=== PATIENT | female | born 1950 | race Caucasian/White ===

== ENCOUNTER → 2017-10-24 16:13 | Outpatient (CLI) | payer OTHER, SELFPAY ==
--- NOTE | 2017-10-24 16:19 | MM_ITS ---
MM Dig screening mamm BI w/CAD CAD Screening ORDERING PHYSICIAN : Garret Zhang MD PATIENT AGE: 67 years GENDER: Female COMPARISON: Previous mammograms: September 2016. August 2015. July 2014. April 2013. & February 2012 INDICATION: 67-year-old. No hormones. No new complaints. Family history. paternal grandmother TECHNIQUE: Standard CC and MLO images were obtained. R2 CAD reviewed. FINDINGS: Moderately dense breast tissue at the central and upper outer quadrant both both breast slight inhomogeneous and mild asymmetry again noted with no significant new findings.. RIGHT BREAST:No new findings. The stable mild asymmetry is similar to multiple previous studies including those dating back to 2011 LEFT BREAST:Small area of nodularity inferior left breast stable. Architectural pattern is stable. Stable region of what appears to be stable glandular tissue central lateral breast on cc view is unchanged since studies dating back to 2011. IMPRESSION: Stable mammogram. Follow-up in one year recommended. Moderately dense breast, which do slightly decreases sensitivity mammography but we see no significant new areas of concern. BI-RADS Category: 2 Benign Finding(s) RECOMMENDED FOLLOW-UP: 1YR - 1 YEAR FOLLOW-UP (A letter has been sent to the patient regarding results of the study.)
== END ==
PROVIDERS: PCP Family Medicine; Visit Provider Family Medicine
DX: Z12.31 Encounter for screening mammogram for malignant neoplasm of breast (principal)
CPT/HCPCS: 77067

== ENCOUNTER → 2018-01-02 12:24 | Outpatient (CLI) | payer OTHER, SELFPAY ==
--- NOTE | 2018-01-02 12:27 | XR_ITS ---
XR hand LT min 3V HISTORY: ITS.REASON: left 1st digit pain ORDERING PHYSICIAN: Peter Rothman MD PATIENT AGE: 67 years COMPARISON: None FINDINGS: No fracture or dislocation. No lytic or blastic change. There is normal mineralization.. The joint spaces are well-preserved. No significant degenerative/arthritic changes. No erosive changes evident.. IMPRESSION: Negative, no acute finding
== END ==
PROVIDERS: PCP Family Medicine; Visit Provider Orthopaedic Surgery
DX: M79.642 Pain in left hand (principal)
CPT/HCPCS: 73130

== ENCOUNTER → 2019-02-03 13:01 | Outpatient (CLI) | payer OTHER, SELFPAY ==
--- NOTE | 2019-02-03 13:09 | XR_ITS ---
XR finger LT min 2V CLINICAL INDICATION: ITS.REASON: left thumb pain ORDERING PHYSICIAN: Peter Rothman MD PATIENT AGE: 68 years Comparison: None FINDINGS: There are minimal osteoarthritic changes of the first metacarpal carpal joint. The remaining abdominal has an unremarkable appearance. 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
== END ==
PROVIDERS: PCP Family Medicine; Visit Provider Orthopaedic Surgery
DX: M79.645 Pain in left finger(s) (principal)
CPT/HCPCS: 73140

== ENCOUNTER → 2019-02-27 16:36 | Outpatient (CLI) | payer OTHER, SELFPAY ==
--- NOTE | 2019-02-27 | MM_ITS ---
MM Dig screening mamm BI w/CAD CAD Screening COMPARISON: Digital mammograms with CAD 10/24/2017 and 10/16/2016 INDICATION: There is a history of breast cancer in patient's paternal grandmother TECHNIQUE: Standard CC and MLO images were obtained. R2 CAD reviewed. FINDINGS: Moderate heterogenic fibroglandular densities are seen in central portions of both breasts. There are few benign-appearing microcalcifications left breast and is a mole marker left breast. There is no suspicious lesion and there are no suspicious microcalcifications. IMPRESSION: Moderate breast density with no suspicious lesion seen BI-RADS Category: 2 Benign Finding(s) RECOMMENDED FOLLOW-UP: 1YR - 1 YEAR FOLLOW-UP (A letter has been sent to the patient regarding results of the study.)
== END ==
PROVIDERS: PCP Family Medicine; Visit Provider Family Medicine
DX: Z12.31 Encounter for screening mammogram for malignant neoplasm of breast (principal)
CPT/HCPCS: 77067

== ENCOUNTER → 2019-09-28 14:11 | Outpatient (CLI) | payer OTHER, SELFPAY ==
--- NOTE | 2019-09-28 14:20 | XR_ITS ---
PROCEDURE: XR SHOULDER LT MIN 2V CLINICAL INDICATION: DECREASED ROM, SHOULDER PAIN COMPARISON: No exams were available for comparison FINDINGS: There is no acute fracture dislocation. On the AP external rotation view a 13 millimeter radiolucency with sclerotic margins is suggested in the proximal shaft of the humerus. This is not confirmed on the other images and favored to be artifactual. Dedicated humerus exam could further evaluate if felt to be clinically indicated. Mild acromioclavicular and glenohumeral joint arthropathy are noted. IMPRESSION: Mild AC and glenohumeral joint arthropathy with no acute findings. Questionable circumscribed lucent lesion proximal humerus. Dictated by: Domenic Zhao 09/28/2019 15:31 Electronically signed by Domenic Zhao in [facility] 09/28/2019 15:31
== END ==
PROVIDERS: PCP Nurse Practitioner Family; Visit Provider Nurse Practitioner Family
DX: M25.612 Stiffness of left shoulder, not elsewhere classified (principal); M25.512 Pain in left shoulder
CPT/HCPCS: 73030

== ENCOUNTER → 2020-06-01 15:28 | Outpatient (CLI) | payer OTHER, SELFPAY ==
--- NOTE | 2020-06-01 15:31 | MM_ITS ---
PROCEDURE: MM DIG SCREENING MAMM BI W/CAD Digital Breast Tomosynthesis Included CLINICAL INDICATION: SCREENING There is a history of breast cancer patient's paternal grandmother. COMPARISON: MG DMSB DIG MAMM-SCREEN [facility] from 10/16/2016 MG [facility] MM Dig screening mamm BI w/CAD from 10/24/2017 MG DIG MAMM-SCREEN [facility] from 02/27/2019 TECHNIQUE: Standard CC and MLO images and 3D Tomosynthesis was obtained. R2 CAD reviewed. FINDINGS: Moderate somewhat heterogenic fibroglandular densities are seen in the central portions of both breasts and the findings are fairly symmetrical bilaterally. There are couple of benign-appearing micro and macrocalcifications left breast and a few benign-appearing microcalcifications right breast. There is a mole marker left breast. There is no suspicious lesion in either breast and no suspicious microcalcifications. IMPRESSION: Moderate breast density with no suspicious lesions seen BI-RAD Category: 2 Benign Finding(s) FOLLOW-UP: 1YR 1 Year Follow-up (A letter has been sent to the patient regarding results of the study.) Dictated Dr. Luis Enrique Gomes MD 06/03/2020 09:18 Dr. Luis Enrique Kebede MD in [facility] 06/03/2020 09:18
== END ==
PROVIDERS: PCP Family Medicine; Visit Provider Family Medicine
DX: Z12.31 Encounter for screening mammogram for malignant neoplasm of breast (principal)
CPT/HCPCS: 77063; 77067

== ENCOUNTER → 2021-10-16 13:23 | Outpatient (CLI) | payer OTHER, SELFPAY ==
--- NOTE | 2021-10-16 13:25 | MM_ITS ---
PROCEDURE INFORMATION: Exam: MG Bilateral Screening 3D Mammography Exam date and time: 10/16/2021 1:25 PM Age: 71 years old Clinical indication: Screening mammogram TECHNIQUE: Imaging protocol: Bilateral screening tomosynthesis and 2D mammography including computer-aided detection (CAD) when performed. COMPARISON: 1. MG MM DIG SCREENING MAMM BI W/CAD 06/01/2020 3:36 PM 2. MG DIG MAMM-SCREEN [facility] 02/27/2019 4:46 PM 3. MG [facility]BI MM Dig screening mamm BI w/CAD 10/24/2017 4:41 PM 4. MG DMSB DIG MAMM-SCREEN [facility] 10/16/2016 4:07 PM FINDINGS: MAMMOGRAPHY: Breast composition: The breast tissue is heterogeneously dense, which may obscure small masses. Mass: None. Architectural distortion: No new or suspicious architectural distortion. Calcifications: Stable benign-appearing calcifications are present. No new or suspicious cluster of microcalcifications have developed. Asymmetric density: No new or suspicious asymmetric density is present Skin thickening: None. Axillary adenopathy: None. IMPRESSION: No mammographic evidence of malignancy. Recommend annual screening mammography unless otherwise clinically indicated. ASSESSMENT: BI-RADS category 2: Benign
== END ==
PROVIDERS: PCP Family Medicine; Visit Provider Family Medicine
DX: Z12.31 Encounter for screening mammogram for malignant neoplasm of breast (principal)
CPT/HCPCS: 77063; 77067

== ENCOUNTER → 2021-12-26 11:25 | Outpatient (CLI) | payer OTHER, SELFPAY ==
[2021-12-26 12:27] LABS: Basophils # 0.1 K/mm3 (0-0.2); Basophils % 1.3 % (0.1-2.0); Eosinophils # 0.2 K/mm3 (0.0-0.4); Hematocrit 45.8 % (37.0-47.0); Hemoglobin 15.1 g/dL (12.2-16.2); Lymphocytes # 1.7 K/mm3 (0.7-4.5); Lymphocytes % 19.9 % (10-50); Mean Corpuscular Hemoglobin 29.5 pg (27.0-31.2); Mean Corpuscular Volume 89.4 fl (81-99); Mean Platelet Volume 8.6 fl (7.4-10.4); Monocytes # 0.4 K/mm3 (0.1-1.0); Monocytes % 4.7 % (1.7-9.3); Neutrophils # 6.1 K/mm3 (1.8-7.8); Neutrophils % 72.1 % (37.0-80.0); Platelet Count 296 K/mm3 (142-424); Red Blood Count 5.12 M/mm3 (4.20-5.40); Red Cell Distribution Width 13.6 % (11.5-17.5); White Blood Count 8.5 K/mm3 (4.8-10.8)
[2021-12-26 12:52] LABS: Alanine Aminotransferase 42 U/L (12-78); Albumin Level 4.4 g/dl (3.5-5.0); Albumin/Globulin Ratio 1.9 (1.1-1.8); Alkaline Phosphatase 48 U/L (38-126); Anion Gap 14.1 mEq/L (5-15); Aspartate Amino Transferase 35 U/L (14-36); Bilirubin,Total 0.6 mg/dl (0.2-1.3); Blood Urea Nitrogen 18 mg/dl (7-17); Calcium 9.4 mg/dl (8.4-10.2); Carbon Dioxide 27 mmol/L (22.0-30.0); Chloride 104 mmol/L (98-107); Estimated Glomerular Filt Rate 83 ml/min (>60); GFR (African American) 100 ML/MIN (>60); Globulin 2.3 g/dL (1.3-3.2); Glucose 122 mg/dl (74-100); Potassium 4.1 mmoL/L (3.5-5.1); Sodium 141 mmol/L (136-145); Total Protein,Serum 6.7 g/dl (6.3-8.2)
[2021-12-26 13:06] LABS: Free T4 (Free Thyroxine) 1.08 ng/dl (0.78-2.19)
[2021-12-26 13:23] LABS: Thyroid Stimulating Hormone 4.81 uIU/mL (0.465-4.68)
[2021-12-26 14:15] LABS: Vitamin B12 > 1000 pg/mL (239-931)
[2021-12-26 14:38] LABS: 25-OH Vitamin D, Total 19.8 ng/mL (30-100)
== END ==
PROVIDERS: Visit Provider Nurse Practitioner Family
DX: R53.83 Other fatigue (principal); E55.9 Vitamin D deficiency, unspecified
CPT/HCPCS: 36415; 80053; 82306; 82607; 82746; 83036; 84439; 84443; 85025

== ENCOUNTER → 2021-12-29 16:05 | Outpatient (CLI) | payer OTHER, SELFPAY ==
[2021-12-29 17:29] LABS: Basophils # 0.1 K/mm3 (0-0.2); Basophils % 0.3 % (0.1-2.0); Eosinophils # 0.1 K/mm3 (0.0-0.4); Eosinophils % 0.5 % (0.1-12.0); Hematocrit 48.1 % (37.0-47.0); Hemoglobin 15.9 g/dL (12.2-16.2); Lymphocytes # 0.6 K/mm3 (0.7-4.5); Lymphocytes % 3.7 % (10-50); Mean Corpuscular HGB Conc 33.1 g/dL (31.8-35.4); Mean Corpuscular Hemoglobin 29.8 pg (27.0-31.2); Mean Platelet Volume 8.9 fl (7.4-10.4); Monocytes # 0.6 K/mm3 (0.1-1.0); Monocytes % 3.7 % (1.7-9.3); Neutrophils # 14.7 K/mm3 (1.8-7.8); Neutrophils % 91.8 % (37.0-80.0); Platelet Count 321 K/mm3 (142-424); Red Blood Count 5.34 M/mm3 (4.20-5.40); Red Cell Distribution Width 13.6 % (11.5-17.5)
[2021-12-29 17:36] LABS: MANUAL DIFFERENTIAL MANUAL DIFFERENTIAL (MANUAL DIFF)
[2021-12-29 17:42] LABS: Alanine Aminotransferase 59 U/L (12-78); Albumin Level 4.6 g/dl (3.5-5.0); Albumin/Globulin Ratio 1.8 (1.1-1.8); Alkaline Phosphatase 51 U/L (38-126); Amylase 38 U/L (30-110); Anion Gap 15.7 mEq/L (5-15); Aspartate Amino Transferase 54 U/L (14-36); Bilirubin,Total 0.8 mg/dl (0.2-1.3); Blood Urea Nitrogen 22 mg/dl (7-17); Calcium 9.3 mg/dl (8.4-10.2); Carbon Dioxide 26 mmol/L (22.0-30.0); Chloride 103 mmol/L (98-107); Estimated Glomerular Filt Rate 99 ml/min (>60); GFR (African American) 120 ML/MIN (>60); Globulin 2.6 g/dL (1.3-3.2); Glucose 131 mg/dl (74-100); Lipase 29 U/L (23-300); Potassium 3.7 mmoL/L (3.5-5.1); Sodium 141 mmol/L (136-145); Total Protein,Serum 7.2 g/dl (6.3-8.2)
[2021-12-29 18:47] LABS: Lymphocytes % 4 % (10-50); Neutrophils % 90 % (42-76); Platelet Estimate Normal; RBC Morphology Normal; Total Cells Counted 100
== END ==
PROVIDERS: Visit Provider Nurse Practitioner Family
DX: R11.2 Nausea with vomiting, unspecified (principal)
CPT/HCPCS: 36415; 80053; 82150; 83690; 85007; 85025

== ENCOUNTER → 2022-01-08 10:36 | Outpatient (CLI) | payer OTHER, SELFPAY ==
[2022-01-08 11:22] LABS: Basophils # 0.1 K/mm3 (0-0.2); Basophils % 1.2 % (0.1-2.0); Eosinophils # 0.3 K/mm3 (0.0-0.4); Eosinophils % 2.5 % (0.1-12.0); Hematocrit 46.9 % (37.0-47.0); Hemoglobin 15.4 g/dL (12.2-16.2); Lymphocytes # 1.8 K/mm3 (0.7-4.5); Lymphocytes % 16.4 % (10-50); Mean Corpuscular HGB Conc 32.8 g/dL (31.8-35.4); Mean Corpuscular Hemoglobin 29.9 pg (27.0-31.2); Mean Corpuscular Volume 91.1 fl (81-99); Mean Platelet Volume 8.9 fl (7.4-10.4); Monocytes # 0.6 K/mm3 (0.1-1.0); Monocytes % 5.9 % (1.7-9.3); Neutrophils # 8.1 K/mm3 (1.8-7.8); Platelet Count 333 K/mm3 (142-424); Red Blood Count 5.15 M/mm3 (4.20-5.40); Red Cell Distribution Width 13.6 % (11.5-17.5); White Blood Count 10.9 K/mm3 (4.8-10.8)
== END ==
PROVIDERS: PCP Nurse Practitioner Family; Visit Provider Nurse Practitioner Family
DX: D72.829 Elevated white blood cell count, unspecified (principal)
CPT/HCPCS: 36415; 85025

== ENCOUNTER → 2022-01-12 14:14 | Outpatient (CLI) | payer OTHER, SELFPAY ==
--- NOTE | 2022-01-12 14:19 | XR_ITS ---
FINAL REPORT CLINICAL HISTORY: LOW BACK PAIN FINDINGS: 4 views were obtained. There is no acute fracture. There is no malalignment. There is mild lumbar scoliosis convex to the left. There is mild disc space narrowing at L1-L2 and L4-L5. There is a large amount of retained stool. The gallbladder surgically absent. IMPRESSION: Mild disc space narrowing at L1-L2 and L4-L5. Reviewed, Interpreted and Dictated by Sahil Garcia MD Transcribed by Gelacio Skinner Authenticated by Sahil Garcia MD on 01/12/2022 03:12:10 PM [facility]
--- NOTE | 2022-01-12 14:19 | XR_ITS ---
FINAL REPORT CLINICAL HISTORY: LT HIP PAIN,LOW BACK PAIN FINDINGS: Left hip with pelvis. Three views were obtained. There is no acute fracture or dislocation. There is mild narrowing of the hip joint spaces bilaterally. There are no soft tissue abnormalities. IMPRESSION: Mild degenerative change bilaterally. Reviewed, Interpreted and Dictated by Sahil Garcia MD Transcribed by Gelacio Skinner Authenticated by Sahil Garcia MD on 01/12/2022 03:12:02 PM [facility]
== END ==
PROVIDERS: PCP Nurse Practitioner Family; Visit Provider Nurse Practitioner Family
DX: M25.552 Pain in left hip (principal); M54.42 Lumbago with sciatica, left side
CPT/HCPCS: 72110; 73502

== ENCOUNTER → 2022-03-06 12:46 | Outpatient (CLI) | payer OTHER, SELFPAY ==
[2022-03-06 13:15] VITALS: PULSE 78
--- NOTE | 2022-03-06 13:39 | XR_ITS ---
FINAL REPORT CLINICAL HISTORY: ACUTE COUGH FINDINGS: Two views of the chest were obtained. The heart size and pulmonary vascularity are within normal limits. The mediastinum is normal. No acute pulmonary abnormality is identified. There is no pneumothorax. The bony thorax is intact. IMPRESSION: No active cardiopulmonary disease. Reviewed, Interpreted and Dictated by Osmel Campa III, MD Transcribed by Cesia Renae Authenticated by Osmel Campa III, MD on 03/06/2022 03:19:35 PM [facility]
== END ==
PROVIDERS: PCP Nurse Practitioner Family; Visit Provider Nurse Practitioner Family
DX: R05.1 Acute cough (principal)
CPT/HCPCS: 71046; 94060

== ENCOUNTER 2022-04-29 20:32 | Emergency (ER) | payer OTHER, SELFPAY ==
[2022-04-29 20:33] VITALS: BP 179/70; PULSE 112; RESP 18; TEMP 36.7; O2SAT 95; BMI 37.0
--- NOTE | 2022-04-29 20:45 | XR_ITS ---
PROCEDURE INFORMATION: Exam: XR Cervical Spine Exam date and time: 04/29/2022 8:42 PM Age: 71 years old Clinical indication: Neck pain TECHNIQUE: Imaging protocol: Radiologic exam of the cervical spine. Views: 4 or 5 views. COMPARISON: CR XR CHEST 2V 03/06/2022 1:44 PM FINDINGS: Bones/joints: Degenerative changes of the uncovertebral and facet joints. Normal alignment. Soft tissues: Multiple dental fillings. IMPRESSION: No acute findings.
--- NOTE | 2022-04-29 21:28 | HMH.EDNECK ---
ED Disposition Clinical Impression: Acute cervical myofascial strain Qualifiers: Encounter type: initial encounter Qualified Code(s): S16.1XXA - Strain of muscle, fascia and tendon at neck level, initial encounter Disposition: Home, Self-Care Condition on Discharge: Good Instructions: DI for Neck Pain Additional Instructions: use meds and call pcp for follow up Prescriptions: predniSONE [Prednisone 20mg Tab] 20 mg PO BID #10 tab Transmission Status: Pending to [facility] # Tizanidine HCl [Zanaflex 4mg tab] 4 mg PO TID #21 tab Transmission Status: Pending to [facility] # Referrals: Georgina Esquivel APRN [Primary Care Provider] - - Critical Care Critical Care Time: No Attestation: On 04/29/22, the high probability of a clinically significant, sudden or life threatening deterioration of the following system(s) required my full and direct attention, intervention and personal management. The time I documented below is in addition to time spent performing reported procedures but includes the following listed in this critical care notation. Medical Decision Making - Medical Records Medical records reviewed: Yes: I reviewed the patient's medical records. - Des Inquiry Pt receiving controlled substance: No Vital Signs: 04/29/22 20:33 Temperature 98.1 F Temperature Source Oral Pulse Rate [Right] 112 H Respiratory Rate 18 Blood Pressure [Right Arm] 179/70 H Blood Pressure Mean [Right Arm] 106 02 Sat by Pulse Oximetry 95 - Lab Data Lab results reviewed: Yes: I reviewed the patient's lab results. Orders (Tests/Meds): ED MEDICATIONS Discontinued Medications Generic Name Dose Route Start Last Admin Trade Name Galo PRN Reason Stop Dose Admin Hydrocodone Bitart/Acetaminophen 1 tab 04/29/22 21:36 04/29/22 21:41 Hydrocodone/Apap 5/325 Mg Tablet PO 04/29/22 21:37 1 tab ONCE ONE Administration Dexamethasone Sodium Phosphate 8 mg 04/29/22 21:35 04/29/22 21:41 Dexamethasone 4mg/Ml 1ml Vial IM 04/29/22 21:36 8 mg ONCE ONE Administration Ketorolac Tromethamine 60 mg 04/29/22 21:36 04/29/22 21:41 Ketorolac 30mg/Ml Vial IM 04/29/22 21:37 60 mg ONCE ONE Administration - Radiology Data #1 Image(s): C-Spine Image Reviewed: Yes I have reviewed radiologist's interpretation Preliminary Findings: No Fracture Seen Medical Decision Narrative: pt with acute cervical spine pain with no focal neuro changes and stable xray Neck Pain/Injury HPI - General Chief Complaint: Neck Pain/Injury Stated Complaint: neck pain Time Seen by Provider: 04/29/22 21:28 Mode of Arrival: Ambulatory Source of Information: Patient, Spouse, Medical Record Limitations: No Limitations Description of Symptoms (Recalled from ER Triage Doc. by RN): pt states drove to [place] on saturday. on saturday pt began having lt side neck pain but today began with rt side neck pain. pt denies any injury/trauma - History of Present Illness HPI Narrative: after driving has neck pain with decrom but no radicular pain - no fever or rash and no neuro sx - no sob MD complaint: neck pain Onset (ago): day(s) Radiation: right lateral, left lateral Severity: moderate Quality: sharp Relieving factors: none Exacerbating factors: movement of neck Context: driving Associated symptoms: none Treatments prior to arrival: other (patches ) - Related Data Home Medications Medication Instructions Recorded Confirmed omeprazole 40 mg capsule,delayed 40 mg PO ONCE 01/09/18 02/03/19 release pravastatin 40 mg tablet 40 mg PO QHS 01/09/18 02/03/19 Previous Rx's Medication Instructions Recorded Tizanidine HCl [Zanaflex 4mg 4 mg PO TID #21 tab 04/29/22 tab] predniSONE [Prednisone 20mg 20 mg PO BID #10 tab 04/29/22 Tab] Allergies Allergy/AdvReac Type Severity Reaction Status Date / Time No Known Allergies Allergy Verified 02/03/19 14:29 [facility]
[2022-04-29 22:06] VITALS: BP 164/78; PULSE 90; RESP 16; TEMP 36.7; O2SAT 97
== END 2022-04-29 22:12 | disposition home or self-care (01) ==
PROVIDERS: Emergency Provider Emergency Medicine; PCP Nurse Practitioner Family
DX: S16.1XXA Strain of muscle, fascia and tendon at neck level, initial encounter (principal); J45.909 Unspecified asthma, uncomplicated; K21.9 Gastro-esophageal reflux disease without esophagitis; E78.5 Hyperlipidemia, unspecified
CPT/HCPCS: 72050; 96372; 96374; 99284

== ENCOUNTER → 2022-09-17 12:02 | Outpatient (CLI) | payer OTHER, SELFPAY ==
--- NOTE | 2022-09-17 12:10 | XR_ITS ---
FINAL REPORT CLINICAL HISTORY: LT HIP PAIN COMPARISON: 01/12/2022 FINDINGS: LEFT HIP Two views of the left hip including an AP pelvis demonstrate no acute fracture or dislocation. There are mild degenerative changes of the left hip. The visualized bony structures are well aligned. No soft tissue abnormality is seen. IMPRESSION: Mild degenerative changes of the left hip. Reviewed, Interpreted and Dictated by Ericka Day MD Transcribed by Catherine Lyons Authenticated and [facility]
== END ==
PROVIDERS: PCP Family Medicine; Visit Provider Nurse Practitioner Family
DX: M25.552 Pain in left hip (principal)
CPT/HCPCS: 73502

== ENCOUNTER 2022-11-13 11:47 | Emergency (ER) | payer OTHER, SELFPAY ==
[2022-11-13 12:30] VITALS: BP 141/81; PULSE 86; RESP 20; TEMP 37; O2SAT 95; BMI 37.0
--- NOTE | 2022-11-13 12:37 | EXP.UTC ---
Discharge Plan Disposition Patient Disposition: Home, Self-Care Condition: Good Prescriptions Prescriptions: New azithromycin [Zithromax] 250 mg tablet 250 mg PO UD DOSE PK Qty: 6 0RF Rx Instructions: Take two (2) tablets today, then one (1) tablet days #2 thru #5 benzonatate [benzonatate] 100 mg capsule 100 mg PO TIDP PRN (Reason: Cough) Qty: 30 0RF methylprednisolone 4 mg Tablets,Dose Pack 4 mg PO DIRECTED Qty: 21 0RF No Action omeprazole 40 mg capsule,delayed release(DR/EC) 40 mg PO ONCE pravastatin 40 mg tablet 40 mg PO QHS tizanidine 4 MG tablet 4 mg PO TID Qty: 21 0RF levothyroxine 25 mcg tablet 25 mcg PO DAILY Label Comments: TAKE 1 TABLET BY MOUTH EVERY DAY IN THE MORNING ON AN EMPTY STOMACH levocetirizine 5 mg tablet 5 mg PO DAILY Label Comments: TAKE 1 TABLET BY MOUTH EVERY DAY IN THE EVENING prednisone 20 MG tablet 20 mg PO BID Referrals Follow up/Referrals: Rosaura Haro MD [Primary Care Provider] - See instructions Activity Restrictions/Add. Instructions Additional Instructions/Restrictions: Drink plenty of fluids. Take tylenol or ibuprofen for pain or fever. Don't start the oral steroids until tomorrow, since you had the shot here today. Go ahead and start the antibiotics today. Take the medications as directed. Follow up with your regular doctor. GO TO THE ER FOR ANY WORSENING SYMPTOMS Clinical Impressions Clinical Impression: Sinusitis Instructions Patient Instructions: Sinusitis, DI for Sinusitis Discharge ED Provider: Ramez Judge [facility] General Stated complaint: Sore throat drainage cough Time Seen by Provider: 11/13/22 12:37 History of Present Illness Provider Complaint: She states that for the past 5 days she has had sinus congestion, lots of sinus drainage, and a sore throat. Related Data Home Medications Medication Instructions Recorded Confirmed omeprazole 40 mg capsule,delayed 40 mg PO ONCE GERD 01/09/18 11/13/22 release pravastatin 40 mg tablet 40 mg PO QHS High cholesterol 01/09/18 11/13/22 levocetirizine 5 mg tablet 5 mg PO DAILY allergies 11/13/22 11/13/22 levothyroxine 25 mcg tablet 25 mcg PO DAILY thyroid 11/13/22 11/13/22 prednisone 20 mg tablet 20 mg PO BID . 11/13/22 11/13/22 Previous Rx's Medication Instructions Recorded tizanidine 4 mg tablet 4 mg PO TID #21 tabs 04/29/22 azithromycin 250 mg tablet 250 mg PO UD DOSE PK #6 tabs 11/13/22 (Zithromax) benzonatate 100 mg capsule 100 mg PO TIDP PRN Cough #30 caps 11/13/22 methylprednisolone 4 mg tablets in 4 mg PO DIRECTED #21 tabs 11/13/22 a dose pack Allergies Allergy/AdvReac Type Severity Reaction Status Date / Time No Known Allergies Allergy Verified 11/13/22 12:39 [facility] Disclaimer: The information contained in this section may have been updated after the patient was seen, as this information can be updated by other users. Social History Smoking Status: Never smoker alcohol intake: never substance use type: denies use current occupational status: retired Travel in the last 8 weeks: None ROS Obtained: Yes All systems reviewed & no additional complaints except as documented Constitutional Constitutional: Reports poor appetite Eyes Eyes: Reports system reviewed and no additional complaints, except as documented ENT Ears, Nose, Mouth, and Throat: Reports as per HPI Cardiovascular Cardiovascular: Reports system reviewed and no additional complaints, except as documented and Denies chest pain Respiratory Respiratory: Denies shortness of breath, Denies chest congestion, Reports cough, Denies stridor and Denies wheezing Gastrointestinal Gastrointestingal: Reports system reviewed and no additional complaints, except as documented; Denies abdominal pain, diarrhea or vomiting Musculoskeletal Musculoskeletal: Reports system revi
[2022-11-13 12:46] LABS: UTC Strep Screen (Rapid) Negative (Negative)
[2022-11-13 13:48] VITALS: BP 147/81; PULSE 86; RESP 20; TEMP 37; O2SAT 95
== END 2022-11-13 13:48 | disposition home or self-care (01) ==
PROVIDERS: Emergency Provider Nurse Practitioner Family; PCP Family Medicine
DX: J32.9 Chronic sinusitis, unspecified (principal)
CPT/HCPCS: 87880; 96372; 99212; 99213; G0463

== ENCOUNTER → 2022-11-26 12:42 | Outpatient (CLI) | payer OTHER, SELFPAY ==
--- NOTE | 2022-11-26 12:47 | MM_ITS ---
PROCEDURE INFORMATION: Exam: MG Bilateral Screening 3D Mammography Exam date and time: 11/26/2022 1:00 PM Age: 72 years old Clinical indication: Screening examination. Her paternal grandmother had breast cancer. TECHNIQUE: Imaging protocol: Bilateral Screening tomosynthesis and 2D mammography including computer-aided detection (CAD) when performed. COMPARISON: 1. MG MM DIG SCREENING MAMM BI W/CAD 10/16/2021 1:31 PM 2. MG MM DIG SCREENING MAMM BI W/CAD 06/01/2020 3:36 PM 3. MG DIG MAMM-SCREEN [facility] 02/27/2019 4:46 PM 4. MG [facility] MM Dig screening mamm BI w/CAD 10/24/2017 4:41 PM FINDINGS: MAMMOGRAPHY: Breast composition: The breasts are heterogeneously dense, which may obscure small masses. Mass: None. Architectural distortion: None. Calcifications: No suspicious calcifications. Asymmetric density: None. Skin thickening: None. Axillary adenopathy: None. IMPRESSION: No mammographic evidence of malignancy. Annual screening is recommended unless otherwise clinically indicated. ASSESSMENT: BI-RADS Category 1: Negative
== END ==
PROVIDERS: PCP Family Medicine; Visit Provider Nurse Practitioner Family
DX: Z12.31 Encounter for screening mammogram for malignant neoplasm of breast (principal)
CPT/HCPCS: 77063; 77067

== ENCOUNTER → 2022-12-24 13:10 | Outpatient (CLI) | payer OTHER, SELFPAY ==
--- NOTE | 2022-12-24 13:14 | XR_ITS ---
FINAL REPORT CLINICAL HISTORY: left hand pain COMPARISON: 01/02/2018 FINDINGS: LEFT HAND Three views of the left hand demonstrate no acute fracture. There is no dislocation. The visualized joint spaces are normally aligned. There are mild and moderate degenerative changes which is worse at the 1st CMC joint. There is a loose body adjacent to the medial aspect of the 1st CMC joint. The degenerative change has progressed since the prior exam at this site. The soft tissues are unremarkable. IMPRESSION: Mild and moderate degenerative change, worst at the 1st CMC joint, progressed at this site since the prior exam. Reviewed, Interpreted and Dictated by Osmel Campa III, MD Transcribed by Catherine Lyons Authenticated and [facility]
== END ==
PROVIDERS: PCP Family Medicine; Visit Provider Orthopaedic Surgery
DX: M79.642 Pain in left hand (principal)
CPT/HCPCS: 73130

== ENCOUNTER 2023-02-06 15:10 | Emergency (ER) | payer OTHER, SELFPAY ==
[2023-02-06 15:11] VITALS: BP 193/83; PULSE 111; RESP 19; TEMP 36.6; O2SAT 95; BMI 35.9
--- NOTE | 2023-02-06 15:39 | ECG_ITS ---
APPROVED REPORT Exam: Resting ECG HR:111 bpm ECG Measurements Heart Rate 111 AXES AR 129 P 46 QRSd 98 QRS 25 QT 310 T 6 QTc 376 Conclusion SINUS TACHYCARDIA ABNORMAL RHYTHM ECG UNCONFIRMED REPORT Electronically signed by : Garret Quintana MD 02/08/2023 14:24:31
[2023-02-06 16:31] VITALS: BP 205/95; PULSE 106; RESP 20; O2SAT 93
--- NOTE | 2023-02-06 16:41 | CT_ITS ---
PROCEDURE INFORMATION: Exam: CTA Head With Contrast, Arteriography Exam date and time: 02/06/2023 8:01 PM Age: 72 years old Clinical indication: Dizziness and giddiness; Additional info: Dizziness, acute on chronic with ranging neck TECHNIQUE: Imaging protocol: Computed tomographic angiography of the head with contrast. Exam focused on the arteries. 3D rendering (Not supervised by radiologist): MIP and/or 3D reconstructed images were created by the technologist. Radiation optimization: All CT scans at this facility use at least one of these dose optimization techniques: automated exposure control; mA and/or kV adjustment per patient size (includes targeted exams where dose is matched to clinical indication); or iterative reconstruction. Contrast material: ISOVUE; Contrast volume: 100 ml; Contrast route: INTRAVENOUS (IV); REPORTING DATA: Count of CT and Cardiac NM exams in prior 12 months: This patient has received 0 known CTs and 0 known cardiac nuclear medicine studies in the 12 months prior to the current study. COMPARISON: No relevant prior studies available. FINDINGS: ANTERIOR CIRCULATION: Right internal carotid artery: Intracranial segment is patent with no significant stenosis. No aneurysm. Right middle cerebral artery: No occlusion or significant stenosis. No aneurysm. Right anterior cerebral artery: No occlusion or significant stenosis. No aneurysm. Left internal carotid artery: Intracranial segment is patent with no significant stenosis. No aneurysm. Left middle cerebral artery: No occlusion or significant stenosis. No aneurysm. Left anterior cerebral artery: No occlusion or significant stenosis. No aneurysm. POSTERIOR CIRCULATION: Right vertebral artery: No occlusion or significant stenosis. No aneurysm. Left vertebral artery: No occlusion or significant stenosis. No aneurysm. Basilar artery: No occlusion or significant stenosis. No aneurysm. Right posterior cerebral artery: No occlusion or significant stenosis. No aneurysm. Left posterior cerebral artery: No occlusion or significant stenosis. No aneurysm. Brain: No definite mass, mass effect, or midline shift. Cerebral ventricles: No ventriculomegaly. Bones/joints: Unremarkable. No acute fracture. Soft tissues: Unremarkable. IMPRESSION: No large vessel stenosis or occlusion. No aneurysm.
--- NOTE | 2023-02-06 16:41 | CT_ITS ---
PROCEDURE INFORMATION: Exam: CT Head Without Contrast Exam date and time: 02/06/2023 7:32 PM Age: 72 years old Clinical indication: Dizziness; Additional info: Dizziness, acute on chronic with ranging neck TECHNIQUE: Imaging protocol: Computed tomography of the head without contrast. Radiation optimization: All CT scans at this facility use at least one of these dose optimization techniques: automated exposure control; mA and/or kV adjustment per patient size (includes targeted exams where dose is matched to clinical indication); or iterative reconstruction. REPORTING DATA: Count of CT and Cardiac NM exams in prior 12 months: This patient has received 0 known CTs and 0 known cardiac nuclear medicine studies in the 12 months prior to the current study. COMPARISON: CR XR CERVICAL SPINE 5V 04/29/2022 8:42 PM FINDINGS: Brain: No intracranial hemorrhage. Generalized atrophic changes of the ventricles and subarachnoid spaces. Chronic small-vessel ischemic changes noted. No mass, mass effect or midline shift. Intracranial atherosclerotic changes are noted. Cerebral ventricles: See Brain finding. Paranasal sinuses: Visualized sinuses are unremarkable. No fluid levels. Mastoid air cells: Visualized mastoid air cells are well aerated. Bones/joints: Unremarkable. No acute fracture. Soft tissues: Unremarkable. IMPRESSION: No acute intracranial abnormality. Chronic changes as above.
--- NOTE | 2023-02-06 16:41 | CT_ITS ---
PROCEDURE INFORMATION: Exam: CTA Neck With Contrast Exam date and time: 02/06/2023 8:01 PM Age: 72 years old Clinical indication: Dizziness and giddiness; Additional info: Dizziness, acute on chronic with ranging neck TECHNIQUE: Imaging protocol: Computed tomographic angiography of the neck with contrast. 3D rendering (Not supervised by radiologist): MIP and/or 3D reconstructed images were created by the technologist. Radiation optimization: All CT scans at this facility use at least one of these dose optimization techniques: automated exposure control; mA and/or kV adjustment per patient size (includes targeted exams where dose is matched to clinical indication); or iterative reconstruction. Contrast material: ISOVUE; Contrast volume: 100 ml; Contrast route: INTRAVENOUS (IV); REPORTING DATA: Count of CT and Cardiac NM exams in prior 12 months: This patient has received 0 known CTs and 0 known cardiac nuclear medicine studies in the 12 months prior to the current study. COMPARISON: CT ANGIO HEAD 02/06/2023 7:35 PM FINDINGS: Limitations: Evaluation of a few segments of the common carotid arteries and proximal ICAs limited secondary to motion artifact. Right common carotid artery: No stenosis. No dissection or occlusion. Right internal carotid artery: No stenosis of the extracranial segment. No dissection or occlusion. Right external carotid artery: No occlusion or stenosis of the origin. Left common carotid artery: No stenosis. No dissection or occlusion. Left internal carotid artery: No stenosis of the extracranial segment. No dissection or occlusion. Left external carotid artery: No occlusion or stenosis of the origin. Right vertebral artery: No stenosis. No dissection or occlusion. Left vertebral artery: No stenosis. No dissection or occlusion. Aorta: Mild atherosclerotic disease of the visualized thoracic aortic arch, without aneurysm or dissection. Conventional thoracic aortic arch branch anatomy. Soft tissues: Normal. No significant soft tissue swelling. Bones/joints: No acute fracture. Degenerative disc disease at the C5-C6 level, with disc space narrowing and osteophyte formation. Lungs: Minimal scattered atelectasis within the visualized upper lobes. IMPRESSION: No extracranial arterial significant stenosis or occlusion. Please see limitations above. REFERENCES: NASCET CRITERIA. The degree of stenosis in the cervical segment of the internal carotid artery is based on NASCET criteria. Normal is no stenosis. Mild is less than 50% stenosis. Moderate is 50-69% stenosis. Severe is 70% to 99% stenosis. Total occlusion is no detectable patent lumen.
[2023-02-06 17:00] VITALS: BP 170/86; PULSE 102; RESP 22; O2SAT 92
--- NOTE | 2023-02-06 17:17 | HMH.EDGENADL ---
Discharge Plan Disposition Patient Disposition: Home, Self-Care Condition: Good Chief Complaint: Weakness Prescriptions Prescriptions: No Action pravastatin 40 mg tablet 40 mg PO HS Label Comments: TAKE 1 TABLET BY MOUTH AT BEDTIME levothyroxine 25 mcg tablet 25 mcg PO AM Label Comments: TAKE 1 TABLET BY MOUTH EVERY DAY IN THE MORNING ON AN EMPTY STOMACH omeprazole 10 mg capsule,delayed release(DR/EC) 10 mg PO DAILY Label Comments: TAKE 1 CAPSULE BY MOUTH EVERY DAY lisinopril-hydrochlorothiazide 10-12.5 mg tablet 1 tab PO DAILY Label Comments: TAKE 1 TABLET BY MOUTH EVERY DAY levocetirizine 5 mg tablet 5 mg PO DAILY Label Comments: TAKE 1 TABLET BY MOUTH EVERY DAY IN THE EVENING Referrals Follow up/Referrals: Georgina Esquivel APRN [Primary Care Provider] - See instructions Activity Restrictions/Add. Instructions Additional Instructions/Restrictions: Follow-up with your family doctor regarding dizziness and vestibular physical therapy versus otolaryngology (ENT) referral for chronic dizziness which may be caused by the inner ear. If you have any other concerning signs or symptoms, return to the ER for further evaluation promptly. Clinical Impressions Clinical Impression: Episodic peripheral vertigo Discharge ED Provider: Jameel Allen General Adult HPI General Chief complaint: Weakness Stated complaint: Nausa.BP, Fast Heart Rate Time Seen by Provider: 02/06/23 15:12 Mode of Arrival: Ambulatory Source of Information: Patient Limitations: No Limitations Description of Symptoms (Recalled from ER Triage Doc. by RN): 72 F presents from PCP's office after being seen by Rocio Em APRN for 1 month of increased HR, increased blood pressure, decreased motivation, increased dizziness and nausea. Patient denies chest pain, shortness of air, fever, or chills. History of Present Illness HPI narrative: This is a 72-year-old female with history of hypothyroidism, hyperlipidemia, hypertension presenting with dizziness. Patient states that she has been feeling dizzy on and off for the past couple of months. She has been seen by her primary care provider for dizziness, high blood pressure, and palpitations happening episodically. During his episodes, patient feels dizzy, nauseated, as if the room is spinning. Made worse by turning her head left and right, looking up and down. Fatigable if she is able to stare in the same direction. Denies word finding difficulty, difficulty chewing, left or right-sided deficits, vision changes (blurry or double), chest pain, shortness of breath, abdominal pain, or any other concerns. Related Data Home Medications Medication Instructions Recorded Confirmed levocetirizine 5 mg tablet 5 mg PO DAILY Allergies 02/06/23 02/06/23 levothyroxine 25 mcg tablet 25 mcg PO AM Thyroid 02/06/23 02/06/23 lisinopril 10 1 tab PO DAILY High blood pressure 02/06/23 02/06/23 mg-hydrochlorothiazide 12.5 mg tablet omeprazole 10 mg capsule,delayed 10 mg PO DAILY Acid reflux 02/06/23 02/06/23 release pravastatin 40 mg tablet 40 mg PO HS Cholesterol 02/06/23 02/06/23 Allergies Allergy/AdvReac Type Severity Reaction Status Date / Time No Known Allergies Allergy Verified 12/25/22 13:05 [facility] Disclaimer: The information contained in this section may have been updated after the patient was seen, as this information can be updated by other users. Social History Smoking Status: Never smoker alcohol intake: never substance use type: denies use current occupational status: retired Travel in the last 8 weeks: None ROS Obtained: Yes All systems reviewed & no additional complaints except as documented Physical Exam General General appearance: alert and in no apparent distress Head Head exam: atraumatic, normocephalic and normal inspection Eye Eye exam: Prese
--- NOTE | 2023-02-06 17:28 | PC.NURSE ---
Attempted 2 ultrasound guided IV's without success. Attending notified and he will go to bedside to complete
[2023-02-06 18:31] LABS: Basophils # 0.1 K/mm3 (0-0.2); Basophils % 0.9 % (0.1-2.0); Eosinophils # 0.3 K/mm3 (0.0-0.4); Eosinophils % 2.3 % (0.1-12.0); Hematocrit 41.9 % (37.0-47.0); Hemoglobin 13.5 g/dL (12.2-16.2); Lymphocytes # 1.7 K/mm3 (0.7-4.5); Lymphocytes % 15.5 % (10-50); Mean Corpuscular HGB Conc 32.3 g/dL (31.8-35.4); Mean Corpuscular Hemoglobin 28.5 pg (27.0-31.2); Mean Corpuscular Volume 88.3 fl (81-99); Mean Platelet Volume 7.8 fl (7.4-10.4); Monocytes # 0.8 K/mm3 (0.1-1.0); Monocytes % 7.1 % (1.7-9.3); Neutrophils # 8.1 K/mm3 (1.8-7.8); Neutrophils % 74.1 % (37.0-80.0); Platelet Count 332 K/mm3 (142-424); Red Blood Count 4.75 M/mm3 (4.20-5.40); Red Cell Distribution Width 13.4 % (11.5-17.5); White Blood Count 10.9 K/mm3 (4.8-10.8)
[2023-02-06 18:34] LABS: Chloride 99 mmol/L (98-107); Potassium 3.8 mmoL/L (3.5-5.1); Sodium 136 mmol/L (136-145)
[2023-02-06 18:37] LABS: Anion Gap 9.8 mEq/L (5-15); Blood Urea Nitrogen 24 mg/dl (7-17); Carbon Dioxide 31 mmol/L (22.0-30.0); Creatinine Clearance Estimated 68 mL/min (50-200); Estimated Glomerular Filt Rate 62 ml/min (>60); GFR (African American) 75 ML/MIN (>60)
[2023-02-06 18:38] LABS: Calcium 9.2 mg/dl (8.4-10.2); Glucose 122 mg/dl (74-100)
[2023-02-06 21:08] VITALS: BP 148/81; PULSE 95; RESP 22; TEMP 37; O2SAT 96
== END 2023-02-06 21:18 | disposition home or self-care (01) ==
PROVIDERS: Emergency Provider Emergency Medicine; PCP Nurse Practitioner Family
DX: R53.1 Weakness (principal); H81.399 Other peripheral vertigo, unspecified ear; R11.0 Nausea
CPT/HCPCS: 70450; 70496; 70498; 80048; 85025; 93005; 99285; Q9967

== ENCOUNTER 2023-02-11 11:00 | Outpatient (RCR) | payer OTHER, SELFPAY | END 2023-02-11 11:05 | disposition home or self-care (01) | LOC: PT 11:00 | PROVIDERS: PCP Family Medicine; Visit Provider Nurse Practitioner Family | DX: M25.552 Pain in left hip (principal) | CPT/HCPCS: 97010; 97014; 97110; 97112; 97140; 97163; 97535; G0283 ==

== ENCOUNTER 2023-02-11 11:29 | Emergency (ER) | payer OTHER, SELFPAY ==
[2023-02-11 11:30] VITALS: BP 155/92; PULSE 93; RESP 17; TEMP 36.8; O2SAT 97; BMI 35.9
--- NOTE | 2023-02-11 11:42 | HMH.EDGENADL ---
Discharge Plan Disposition Patient Disposition: Home, Self-Care Condition: Good Prescriptions Prescriptions: No Action pravastatin 40 mg tablet 40 mg PO HS Label Comments: TAKE 1 TABLET BY MOUTH AT BEDTIME levothyroxine 25 mcg tablet 25 mcg PO AM Label Comments: TAKE 1 TABLET BY MOUTH EVERY DAY IN THE MORNING ON AN EMPTY STOMACH omeprazole 10 mg capsule,delayed release(DR/EC) 10 mg PO DAILY Label Comments: TAKE 1 CAPSULE BY MOUTH EVERY DAY lisinopril-hydrochlorothiazide 10-12.5 mg tablet 1 tab PO DAILY Label Comments: TAKE 1 TABLET BY MOUTH EVERY DAY levocetirizine 5 mg tablet 5 mg PO DAILY Label Comments: TAKE 1 TABLET BY MOUTH EVERY DAY IN THE EVENING Referrals Follow up/Referrals: Rocio Em APRN [Primary Care Provider] - See instructions Clinical Impressions Clinical Impression: Benign essential HTN Discharge ED Provider: Alfie Rey General Adult HPI General Chief complaint: Recheck/Abnormal Lab/Rx Stated complaint: high BP, phy ref Time Seen by Provider: 02/11/23 11:35 Mode of Arrival: Ambulatory Source of Information: Patient Limitations: No Limitations Description of Symptoms (Recalled from ER Triage Doc. by RN): 72 F presents after having her BP taken at physical therapy and it was 190 systolic. Patient is asymptomatic and was evaluated here a few days ago for high blood pressure without symptoms. Patient is supposed to have a new oral BP medication added by her PCP, but has not started anything yet. NAD on arrival. History of Present Illness HPI narrative: 72yo F presents to the ER from physical therapy secondary to elevated blood pressure. Reports blood pressure at physical therapy was 190/110. Denies any chest pain, shortness of breath. Reports she has mild dizziness but has a history of dizziness. Also reports she was seen in the ER on Saturday for the same issue. Reports that home medication as directed. Related Data Home Medications Medication Instructions Recorded Confirmed levocetirizine 5 mg tablet 5 mg PO DAILY Allergies 02/06/23 02/11/23 levothyroxine 25 mcg tablet 25 mcg PO AM Thyroid 02/06/23 02/11/23 lisinopril 10 1 tab PO DAILY High blood pressure 02/06/23 02/11/23 mg-hydrochlorothiazide 12.5 mg tablet omeprazole 10 mg capsule,delayed 10 mg PO DAILY Acid reflux 02/06/23 02/11/23 release pravastatin 40 mg tablet 40 mg PO HS Cholesterol 02/06/23 02/11/23 Allergies Allergy/AdvReac Type Severity Reaction Status Date / Time No Known Allergies Allergy Verified 12/25/22 13:05 [facility] Disclaimer: The information contained in this section may have been updated after the patient was seen, as this information can be updated by other users. Social History Smoking Status: Never smoker alcohol intake: never substance use type: denies use current occupational status: retired Travel in the last 8 weeks: None ROS Obtained: Yes Systems reviewed as appropriate & no additional complaints except as documented Physical Exam General General appearance: alert and in no apparent distress Head Head exam: atraumatic Eye Eye exam: Present PERRL ENT ENT exam: Present normal oropharynx Neck Neck exam: Present normal inspection Chest Chest inspection: Present normal inspection Respiratory Respiratory exam: Present normal lung sounds bilaterally; Absent respiratory distress Cardiovascular Cardiovascular exam: Present regular rate and normal rhythm Abdominal Exam Abdominal exam: Present soft; Absent distention or tenderness Extremities Exam Extremities exam: Present normal inspection Back Exam Back exam: Absent tenderness Neurological Exam Neurological exam: Present alert, oriented X3 and CN II-XII intact Skin Skin exam: Present warm and dry Medical Decision Making Medical Records Medical records reviewed: Yes I reviewed the patient's
[2023-02-11 11:59] VITALS: BP 157/92; PULSE 90; RESP 17; TEMP 36.8; O2SAT 97
--- NOTE | 2023-02-11 13:11 | ECG_ITS ---
APPROVED REPORT Exam: Resting ECG HR:83 bpm ECG Measurements Heart Rate 83 AXES MN 138 P 54 QRSd 76 QRS 39 QT 340 T 42 QTc 380 Conclusion SINUS RHYTHM NORMAL ECG UNCONFIRMED REPORT Electronically signed by : Garret Quintana MD 02/11/2023 19:43:12
== END 2023-02-11 12:00 | disposition home or self-care (01) ==
PROVIDERS: Emergency Provider Family Medicine; PCP Nurse Practitioner Family
DX: R42 Dizziness and giddiness (principal); I10 Essential (primary) hypertension
CPT/HCPCS: 93005; 99283; 99284

== ENCOUNTER → 2023-02-13 11:18 | Outpatient (CLI) | payer OTHER, SELFPAY | PROVIDERS: PCP Nurse Practitioner Family; Visit Provider Nurse Practitioner Family | DX: R42 Dizziness and giddiness (principal); R00.2 Palpitations; I10 Essential (primary) hypertension; R11.0 Nausea | CPT/HCPCS: 93225; 93226 ==

== ENCOUNTER → 2023-02-26 07:57 | Outpatient (CLI) | payer OTHER, SELFPAY ==
--- NOTE | 2023-02-26 07:59 | CA_ITS ---
FINAL REPORT CLINICAL HISTORY: HTN FINDINGS: Aorta velocity: 136 cm/sec Right kidney: 9.9 cm. No evidence of hydronephrosis or mass. Right intrarenal RI: 0.66-0.72 Right renal artery velocity: 133 cm/sec. Right RAR (Renal artery-Aortic Ratio): 0.98 Left Kidney: 11.0 cm. No evidence of hydronephrosis or mass. Left intrarenal RI: 0.60-0.78 Left renal artery velocity: 201 cm/sec. Left RAR (Renal Artery-Aortic Ratio): 1.47 IMPRESSION: No evidence of significant right renal artery stenosis. Less than 60% left renal artery stenosis. Reviewed, Interpreted and Dictated by Ericka Day MD Transcribed by Gelacio Skinner Authenticated and [facility]
--- NOTE | 2023-02-26 08:54 | US_ITS ---
FINAL REPORT TECHNIQUE: Ultrasound images of the kidneys and bladder were obtained. CLINICAL HISTORY: R00.2 - Palpitations FINDINGS: The right kidney measures 10.0 cm in length. It is normal in echogenicity. There is no hydronephrosis. The left kidney measures 10.4 cm in length. It is normal in echogenicity. There is no hydronephrosis. The spleen is unremarkable. IMPRESSION: No hydronephrosis. Reviewed, Interpreted and Dictated by Ericka Day MD Transcribed by Cesia Renae Authenticated and [facility]
== END ==
PROVIDERS: PCP Nurse Practitioner Family; Visit Provider Nurse Practitioner
DX: R42 Dizziness and giddiness (principal); R00.2 Palpitations; I10 Essential (primary) hypertension; R11.0 Nausea
CPT/HCPCS: 76770; 93306; 93976

== ENCOUNTER → 2023-03-05 12:02 | Outpatient (CLI) | payer OTHER, SELFPAY ==
[2023-03-05 13:38] LABS: Anion Gap 15.3 mEq/L (5-15); Blood Urea Nitrogen 18 mg/dl (7-17); Carbon Dioxide 31 mmol/L (22.0-30.0); Chloride 99 mmol/L (98-107); Estimated Glomerular Filt Rate 71 ml/min (>60); GFR (African American) 86 ML/MIN (>60); Glucose 91 mg/dl (74-100); Potassium 4.3 mmoL/L (3.5-5.1); Sodium 141 mmol/L (136-145)
== END ==
PROVIDERS: PCP Family Medicine; Visit Provider Physician Assistant
DX: R42 Dizziness and giddiness (principal); R00.2 Palpitations; I10 Essential (primary) hypertension
CPT/HCPCS: 36415; 80048

== ENCOUNTER → 2023-07-22 13:36 | Outpatient (CLI) | payer BC, SELFPAY ==
--- NOTE | 2023-07-22 13:52 | XR_ITS ---
FINAL REPORT CLINICAL HISTORY: lt hand pain, mainly in the thumb, pt states that it is locking up on her COMPARISON: None FINDINGS: LEFT HAND: 3 views of the left hand were obtained. There is no acute fracture or dislocation. There is moderate degenerative change present at the first carpometacarpal articulation. There is mild degenerative change present elsewhere in the hand and wrist. Soft tissues are unremarkable. IMPRESSION: Moderate degenerative change first CMC joint. Reviewed, Interpreted and Dictated by Osmel Campa III, MD Transcribed by Kristin Nicholas Authenticated and . [facility]
== END ==
PROVIDERS: PCP Family Medicine; Visit Provider Orthopaedic Surgery
DX: M65.312 Trigger thumb, left thumb (principal)
CPT/HCPCS: 73130

== ENCOUNTER 2023-12-16 15:35 | Outpatient (CLI) | payer BC, SELFPAY ==
--- NOTE | 2023-12-16 15:40 | MM_ITS ---
PROCEDURE INFORMATION: Exam: MG Bilateral Screening 3D Mammography Exam date and time: 12/16/2023 3:48 PM Age: 73 years old Clinical indication: Screening examination TECHNIQUE: Imaging protocol: Bilateral Screening tomosynthesis and 2D mammography including computer-aided detection (CAD) when performed. COMPARISON: 1. MG MM DIG SCREENING MAMM BI W/CAD 11/26/2022 1:00 PM 2. MG MM DIG SCREENING MAMM BI W/CAD 10/16/2021 1:31 PM FINDINGS: MAMMOGRAPHY: Breast composition: The breasts are heterogeneously dense, which may obscure small masses. Mass: None. Architectural distortion: None. Calcifications: No suspicious calcifications. Asymmetric density: None. Skin thickening: None. Axillary adenopathy: None. IMPRESSION: No mammographic evidence of malignancy. Annual screening is recommended unless otherwise clinically indicated. ASSESSMENT: BI-RADS Category 1: Negative
== END 2023-12-16 23:59 ==
LOC: RAD 15:35
PROVIDERS: PCP Family Medicine; Visit Provider Family Medicine
DX: Z12.31 Encounter for screening mammogram for malignant neoplasm of breast (principal)
CPT/HCPCS: 77063; 77067

== ENCOUNTER 2024-04-28 15:41 | Outpatient (CLI) | payer BC, SELFPAY ==
--- NOTE | 2024-04-28 15:46 | XR_ITS ---
FINAL REPORT CLINICAL HISTORY: PAIN FINDINGS: Three views of the right knee reveal no evidence of fracture or dislocation. The bony alignment is normal. The joint spaces are preserved. There is no evidence of joint effusion. Meniscal calcifications are noted. Mild patellofemoral degenerative changes are noted. IMPRESSION: No acute abnormality identified. Mild degenerative change. Authenticated and [facility]
== END 2024-04-28 23:59 | disposition home or self-care (01) ==
LOC: RAD 15:41
PROVIDERS: PCP Family Medicine; Visit Provider Nurse Practitioner
DX: M25.561 Pain in right knee (principal)
CPT/HCPCS: 73562

== ENCOUNTER 2025-06-08 09:05 | Outpatient (CLI) | payer BC, SELFPAY ==
--- NOTE | 2025-06-08 09:09 | XR_ITS ---
FINAL REPORT CLINICAL HISTORY: PAIN FINDINGS: Left ankle Three views were obtained. There is no fracture or dislocation. There is a moderate plantar spur. There is mild narrowing of the mortise. Subtle old fracture fragment is seen in the distal tibial metaphysis. No soft tissue abnormality is identified. IMPRESSION: Degenerative and chronic appearing findings. Reviewed, Interpreted and Dictated by Sahil Garcia MD Transcribed by Cesia Renae Authenticated and [facility]
--- OUTSIDE RECORDS SUMMARY | 2025-06-08 09:17 | XMS_ITS | Clinical Summary ---
Author Organization Healthcare Address [address] [place] [address] Care Team Providers Care Electronics Tester Name Role Phone Unavailable Primary Care Provider Unavailabl e Social History Tobacco Use Types Packs/Day Years Used Date Smoking Tobacco: Never Assessed Comments Unknown Sex and Gender Information Value Date Recorded Sex Assigned at Not on file Legal Sex Female 6:47 PM EDT Gender Identity Not on file Sexual Orientation Not on file Plan of Treatment Health Maintenance Due Date Last Done Comments [facility]-Bone Density Scan 1951 [facility]-Depression Screening 1950 [facility]-Infant/Child/Adol SDOH Screenings 1950 [facility]- SDOH Screenings 1969 [facility]-Adult SDOH Screenings 1969 [facility]-DTaP,Tdap,and Td Vaccine s (1 - Tdap) 1970 CT Colonography 1996 Colonoscopy 1996 FIT-DNA 1996 FIT 1996 FOBT 1996 Sigmoidoscopy 1996 [facility]-Colorectal Cancer Screening 1996 [facility]-Pneumococcal Vaccine: 50 + Years (1 of 1 - PCV) 2001 [facility]-Zoster Vaccines (1 of 2) 2001 [id number] Vaccine ( - season) 2024 09/20/2021, 02/01/2021, 01/04/2021 [facility]-Influenza Vaccine (#1) 2025 [facility]-RSV Vaccine: 60+ Years o r (1 - 1-dose 75+ series) 2026 HPV Vaccines Aged Out No longer eligi ble based on patient's age to complete this topic [facility]-HIB Vaccines Aged Out No longer e ligible based on patient's age to complete this topic [facility]-Hepatitis A Vaccines Aged Out No longer eligible based on patient's age to complete this topic [facility]-IPV Vaccines Aged Out No longer e ligible based on patient's age to complete this topic [facility]-Rotavirus Vaccines Aged Out No lo nger eligible based on patient's age to complete this topic Insurance [employer]
== END 2025-06-08 23:59 | disposition home or self-care (01) ==
LOC: RAD 09:06
PROVIDERS: PCP Nurse Practitioner; Visit Provider Nurse Practitioner
DX: M19.072 Primary osteoarthritis, left ankle and foot (principal); S82.392S Other fracture of lower end of left tibia, sequela
CPT/HCPCS: 73610

== ENCOUNTER 2025-08-02 15:10 | Outpatient (CLI) | payer BC, SELFPAY ==
--- NOTE | 2025-08-02 15:13 | MM_ITS ---
PROCEDURE INFORMATION: Exam: MG Bilateral Screening 3D Mammography Exam date and time: 08/02/2025 3:22 PM Age: 75 years old Clinical indication: Screening examination TECHNIQUE: Imaging protocol: Bilateral Screening tomosynthesis and 2D mammography including computer-aided detection (CAD) when performed. COMPARISON: MG MM DIG SCREENING MAMM BI W/CAD 12/16/2023 3:48 PM FINDINGS: MAMMOGRAPHY: Breast composition: The breasts are heterogeneously dense, which may obscure small masses. Mass: No suspicious masses. Architectural distortion: None. Calcifications: No suspicious calcifications. Asymmetric density: None. Skin thickening: None. Axillary adenopathy: None. IMPRESSION: No mammographic evidence of malignancy. Annual screening is recommended unless otherwise clinically indicated. ASSESSMENT: BI-RADS Category 1: Negative.
--- OUTSIDE RECORDS SUMMARY | 2025-08-02 15:14 | XMS_ITS | Clinical Summary ---
Author Organization Healthcare Address [address] [place] [address] Care Team Providers Care Financial Advisor Trainee Name Role Phone Unavailable Primary Care Provider [...] 2001 [facility]-Zoster Vaccines (1 of 2) 2001 [id number] Vaccine ( - 2024- season) 2025 09/20/2021, 02/01/2021, 01/04/2021 [facility]-Influenza Vaccine (#1) 2025 [...]
== END 2025-08-02 23:59 | disposition home or self-care (01) ==
LOC: RAD 15:11
PROVIDERS: PCP Nurse Practitioner; Visit Provider Nurse Practitioner
DX: Z12.31 Encounter for screening mammogram for malignant neoplasm of breast (principal); R92.333 Mammographic heterogeneous density, bilateral breasts
CPT/HCPCS: 77063; 77067

== ENCOUNTER 2025-09-20 14:48 | Outpatient (CLI) | payer BC, SELFPAY ==
--- NOTE | 2025-09-20 14:52 | XR_ITS ---
FINAL REPORT TECHNIQUE: 3 views left knee CLINICAL HISTORY: LT KNEE PAIN COMPARISON: None FINDINGS: AP, lateral and oblique views of the left knee were obtained. There is no prior exam for comparison. There is no acute osseous abnormality of the left knee. Chondrocalcinosis is present, otherwise the soft tissues are normal. There is no joint effusion. IMPRESSION: Chondrocalcinosis, with no acute osseous abnormality of the left knee. Reviewed, Interpreted and Dictated by Tia Webber MD Transcribed by Kristin Nicholas Authenticated and [facility]
--- OUTSIDE RECORDS SUMMARY | 2025-09-20 14:55 | XMS_ITS | Clinical Summary ---
Author Organization Healthcare Address [address] [place] [address] Care Team Providers Care Senior Back End Java Developer Name Role Phone Unavailable Primary Care Provider [...] 2001 [facility]-Zoster Vaccines (1 of 2) 2001 [id number] Vaccine ( - 2024- season) 2025 09/20/2021, [...]
== END 2025-09-20 23:59 | disposition home or self-care (01) ==
LOC: RAD 14:49
PROVIDERS: PCP Nurse Practitioner; Visit Provider Nurse Practitioner Family
DX: M11.262 Other chondrocalcinosis, left knee
CPT/HCPCS: 73562